=== PATIENT | male | born 1970 | race Caucasian/White ===

== ENCOUNTER 2021-05-09 13:13 | Emergency (ER) | payer BC ==
[2021-05-09] MEDS ORDERED: Sodium Chloride 0.9% 10 ML Syringe FLUSH PRN ×2 (13:51→14:02)
[2021-05-09] MEDS ORDERED: Sodium Chloride 0.9% 1,000 ML IV STA (13:52)
[2021-05-09] MEDS ORDERED: Ondansetron 4 MG/2 ML SDV IVPUSH ONE (13:52)
[2021-05-09] MEDS ORDERED: HYDROmorphone 0.5 MG/0.5 ML Syringe IVPUSH ONE ×2 (13:52→14:49)
[2021-05-09] MEDS ORDERED: Iopamidol 612 MG/ML 100 ML Bottle IVPUSH ONE (14:02)
--- NOTE | 2021-05-09 14:08 | EDM.PDOC ---
ED HPI GENERAL MEDICAL PROBLEM - General Chief Complaint: Back Pain or Injury Stated Complaint: R SIDE RIB AND BACK PAIN Time Seen by Provider: 05/09/21 13:22 Source of Information: Reports: Patient, RN Notes Reviewed History Limitations: Reports: No Limitations - History of Present Illness INITIAL COMMENTS - FREE TEXT/NARRATIVE: Patient is a 50-year-old male presenting to the emergency department with acute onset of right-sided flank pain which radiates into his right ribs and somewhat into his right abdomen. He reports that he was driving when the symptoms began. Describes it as coming on fairly acutely. He did vomit when the pain began. Denies any recent injuries that he can recall. He denies history of kidney stones but states that he did have a "kidney obstruction "on the right side approximately 30 years ago. He believes this obstruction was within the ureter and not of blood flow. Denies any obvious blood in his urine but states that he did feel that it smelled different today. He denies any fever or chills. Patient also reports that he believes he has a sinus infection. He has some nasal congestion upon waking this morning had greenish discharge in his left eye. Denies any itching or pain to the eye. Patient reports that he did drink a large amount of alcohol last evening. He normally drinks about 5 drinks per day, however last evening he drank much more than this. Patient has past medical history significant for type 2 diabetes, hypertension, and high cholesterol. Right Back Pain Score (Numeric/FACES): 8 - Related Data Allergies Allergy/AdvReac Type Severity Reaction Status Date / Time meperidine [From Demerol] Allergy Nausea Verified 05/09/21 13:25 Home Meds: Home Meds Chlorthalidone 25 mg PO DAILY 05/09/21 [History] amLODIPine [Norvasc] 10 mg PO DAILY 05/09/21 [History] atorvaSTATin [Lipitor] 20 mg PO DAILY 05/09/21 [History] metFORMIN [Glucophage] 1,000 mg PO DAILY 05/09/21 [History] Cyclobenzaprine [Flexeril] 10 mg PO TID PRN #10 tab 05/10/21 [Rx] Hydrocodone/Acetaminophen [Hydrocodone-Acetamin 5-325 mg] 1 each PO Q4H PRN #12 tablet 05/10/21 [Rx] Potassium Chloride 20 meq PO BID 3 Days #6 tablet.er 10/17/21 [Rx] Past Medical History Cardiovascular History: Reports: High Cholesterol, Hypertension Genitourinary History: Reports: Renal Calculus Musculoskeletal History: Reports: Other (See Below) Other Musculoskeletal History: back surgery Endocrine/Metabolic History: Reports: Diabetes, Type II Social & Family History - Tobacco Use Tobacco Use Status *Q: Never Tobacco User Second Hand Smoke Exposure: No - Caffeine Use Caffeine Use: Reports: Energy Drinks - Alcohol Use Days Per Week of Alcohol Use: 5 Number of Drinks Per Day: 3 Total Drinks Per Week: 15 - Recreational Drug Use Recreational Drug Use: No ED ROS GENERAL - Review of Systems Review Of Systems: See Below Constitutional: Reports: No Symptoms. Denies: Fever, Chills HEENT: Reports: No Symptoms Respiratory: Reports: No Symptoms Cardiovascular: Reports: No Symptoms Endocrine: Reports: No Symptoms GI/Abdominal: Reports: Nausea, Vomiting. Denies: Abdominal Pain, Diarrhea : Reports: Flank Pain. Denies: Dysuria, Hematuria Musculoskeletal: Reports: Back Pain Skin: Reports: No Symptoms Neurological: Reports: No Symptoms Psychiatric: Reports: No Symptoms Hematologic/Lymphatic: Reports: No Symptoms Immunologic: Reports: No Symptoms ED EXAM, GENERAL - Physical Exam Exam: See Below Exam Limited By: No Limitations General Appearance: Alert, WD/WN, No Apparent Distress Respiratory/Chest: No Respiratory Distress, Lungs Clear, Normal Breath Sounds, No Accessory Muscle Use, Chest Non-Tender Cardiovascular: Normal Peripheral Pulses, Regular Rate, Rhythm, No Edema, No Gallop, No JVD, No Murmur, No Rub GI/Abdominal: Normal Bowel Sounds, Soft, No Organomegaly, No Distention, No Abnormal Bruit, No Mass, Tender (Mild right lateral) Back Exam: Normal Inspection, Full Range of Motion, CVA Tenderness (R) (Mild) Neurological: Alert, Oriented, CN II-XII Intact, Normal Cognition, Normal Gait, Normal Reflexes, No Motor/Sensory Deficits Psychiatric: Normal Affect, Normal Mood Skin Exam: Warm, Dry, Intact, Normal Color, No Rash #1 Interpretation EKG Date: 05/09/21 Time: 14:33 Rhythm: NSR Rate (Beats/Min): 106 Braham: Normal P-Wave: Present QRS: Normal ST-T: Normal QT: Prolonged (borderline) EKG Interpretation Comments: paired PVCs Course - Vital Signs Last Recorded V/S: Last Vital Signs Temp 98.6 F 05/09/21 13:23 Pulse 105 H 05/09/21 13:23 Resp 20 05/09/21 13:23 BP 152/78 H 05/09/21 13:23 Pulse Ox 97 05/09/21 13:23 - Orders/Labs/Meds Labs: Laboratory Tests 05/09/21 05/09/21 05/09/21 Range/Units 13:30 14:15 14:15 WBC 12.97 H (4.23-9.07) K/mm3 RBC 5.04 (4.63-6.08) M/mm3 Hgb 15.5 (13.7-17.5) gm/dl Hct 43.6 (40.1-51.0) % MCV 86.5 (79.0-92.2) fl MCH 30.8 (25.7-32.2) pg MCHC 35.6 H (32.2-35.5) g/dl RDW Std Deviation 40.2 (35.1-43.9) fL Plt Count 249 (163-337) K/mm3 MPV 11.7 (9.4-12.3) fl Neut % (Auto) 73.6 H (34.0-67.9) % Lymph % (Auto) 17.7 L (21.8-53.1) % [place] % (Auto) 7.6 (5.3-12.2) % Eos % (Auto) 0.2 L (0.8-7.0) Baso % (Auto) 0.5 (0.1-1.2) % Neut # (Auto) 9.55 H (1.78-5.38) K/mm3 Lymph # (Auto) 2.30 (1.32-3.57) K/mm3 [place] # (Auto) 0.98 H (0.30-0.82) K/mm3 Eos # (Auto) 0.03 L (0.04-0.54) K/mm3 Baso # (Auto) 0.06 (0.01-0.08) K/mm3 Sodium 135 L (136-145) mEq/L Potassium 2.3 L* (3.5-5.1) mEq/L Chloride 93 L (98-107) mEq/L Carbon Dioxide 31 (21-32) mEq/L Anion Gap 13.3 (5-15) BUN 17 (7-18) mg/dL Creatinine 1.1 (0.7-1.3) mg/dL Est Cr Clr Drug Dosing 71.69 mL/min Estimated GFR (MDRD) > 60 (>60) mL/min BUN/Creatinine Ratio 15.5 (14-18) Glucose 258 H (70-99) mg/dL Calcium 8.9 (8.5-10.1) mg/dL Magnesium (1.8-2.4) mg/dL Total Bilirubin 0.7 (0.2-1.0) mg/dL AST 71 H (15-37) U/L ALT 82 H (16-63) U/L Alkaline Phosphatase 99 (46-116) U/L Troponin I (0.00-0.056) ng/mL C-Reactive Protein 1.6 H* (<1.0) mg/dL Total Protein 7.3 (6.4-8.2) g/dl Albumin 3.6 (3.4-5.0) g/dl Globulin 3.7 gm/dL Albumin/Globulin Ratio 1.0 (1-2) Lipase (73-393) U/L Urine Color Yellow (Yellow) Urine Appearance Clear (Clear) Urine pH 7.0 (5.0-8.0) Ur Specific Counce 1.020 (1.005-1.030) Urine Protein Negative (Negative) Urine Glucose (UA) 2+ H (Negative) Urine Ketones Negative (Negative) Urine Occult Blood Negative (Negative) Urine Nitrite Negative (Negative) Urine Bilirubin Negative (Negative) Urine Urobilinogen 1.0 (0.2-1.0) Ur Leukocyte Esterase Negative (Negative) SARS-CoV-2 RNA (LETTY) (NEGATIVE) 05/09/21 05/09/21 05/09/21 Range/Units 14:15 14:15 14:15 WBC (4.23-9.07) K/mm3 RBC (4.63-6.08) M/mm3 Hgb (13.7-17.5) gm/dl Hct (40.1-51.0) % MCV (79.0-92.2) fl MCH (25.7-32.2) pg MCHC (32.2-35.5) g/dl RDW Std Deviation (35.1-43.9) fL Plt Count (163-337) K/mm3 MPV (9.4-12.3) fl Neut % (Auto) (34.0-67.9) % Lymph % (Auto) (21.8-53.1) % [place] % (Auto) (5.3-12.2) % Eos % (Auto) (0.8-7.0) Baso % (Auto) (0.1-1.2) % Neut # (Auto) (1.78-5.38) K/mm3 Lymph # (Auto) (1.32-3.57) K/mm3 [place] # (Auto) (0.30-0.82) K/mm3 Eos # (Auto) (0.04-0.54) K/mm3 Baso # (Auto) (0.01-0.08) K/mm3 Sodium (136-145) mEq/L Potassium (3.5-5.1) mEq/L Chloride (98-107) mEq/L Carbon Dioxide (21-32) mEq/L Anion Gap (5-15) BUN (7-18) mg/dL Creatinine (0.7-1.3) mg/dL Est Cr Clr Drug Dosing mL/min Estimated GFR (MDRD) (>60) mL/min BUN/Creatinine Ratio (14-18) Glucose (70-99) mg/dL Calcium (8.5-10.1) mg/dL Magnesium (1.8-2.4) mg/dL Total Bilirubin (0.2-1.0) mg/dL AST (15-37) U/L ALT (16-63) U/L Alkaline Phosphatase (46-116) U/L Troponin I < 0.017 (0.00-0.056) ng/mL C-Reactive Protein (<1.0) mg/dL Total Protein (6.4-8.2) g/dl Albumin (3.4-5.0) g/dl Globulin gm/dL Albumin/Globulin Ratio (1-2) Lipase 163 (73-393) U/L Urine Color (Yellow) Urine Appearance (Clear) Urine pH (5.0-8.0) Ur Specific Counce (1.005-1.030) Urine Protein (Negative) Urine Glucose (UA) (Negative) Urine Ketones (Negative) Urine Occult Blood (Negative) Urine Nitrite (Negative) Urine Bilirubin (Negative) Urine Urobilinogen (0.2-1.0) Ur Leukocyte Esterase (Negative) SARS-CoV-2 RNA (LETTY) Negative (NEGATIVE) 05/09/21 05/09/21 Range/Units 14:15 18:20 WBC (4.23-9.07) K/mm3 RBC (4.63-6.08) M/mm3 Hgb (13.7-17.5) gm/dl Hct (40.1-51.0) % MCV (79.0-92.2) fl MCH (25.7-32.2) pg MCHC (32.2-35.5) g/dl RDW Std Deviation (35.1-43.9) fL Plt Count (163-337) K/mm3 MPV (9.4-12.3) fl Neut % (Auto) (34.0-67.9) % Lymph % (Auto) (21.8-53.1) % [place] % (Auto) (5.3-12.2) % Eos % (Auto) (0.8-7.0) Baso % (Auto) (0.1-1.2) % Neut # (Auto) (1.78-5.38) K/mm3 Lymph # (Auto) (1.32-3.57) K/mm3 [place] # (Auto) (0.30-0.82) K/mm3 Eos # (Auto) (0.04-0.54) K/mm3 Baso # (Auto) (0.01-0.08) K/mm3 Sodium (136-145) mEq/L Potassium (3.5-5.1) mEq/L Chloride (98-107) mEq/L Carbon Dioxide (21-32) mEq/L Anion Gap (5-15) BUN (7-18) mg/dL Creatinine (0.7-1.3) mg/dL Est Cr Clr Drug Dosing mL/min Estimated GFR (MDRD) (>60) mL/min BUN/Creatinine Ratio (14-18) Glucose (70-99) mg/dL Calcium (8.5-10.1) mg/dL Magnesium 1.0 L (1.8-2.4) mg/dL Total Bilirubin (0.2-1.0) mg/dL AST (15-37) U/L ALT (16-63) U/L Alkaline Phosphatase (46-116) U/L Troponin I < 0.017 (0.00-0.056) ng/mL C-Reactive Protein (<1.0) mg/dL Total Protein (6.4-8.2) g/dl Albumin (3.4-5.0) g/dl Globulin gm/dL Albumin/Globulin Ratio (1-2) Lipase (73-393) U/L Urine Color (Yellow) Urine Appearance (Clear) Urine pH (5.0-8.0) Ur Specific Counce (1.005-1.030) Urine Protein (Negative) Urine Glucose (UA) (Negative) Urine Ketones (Negative) Urine Occult Blood (Negative) Urine Nitrite (Negative) Urine Bilirubin (Negative) Urine Urobilinogen (0.2-1.0) Ur Leukocyte Esterase (Negative) SARS-CoV-2 RNA (LETTY) (NEGATIVE) Meds: Medications Discontinued Medications Generic Name Dose Route Start Last Admin Trade Name Freq PRN Reason Stop Dose Admin Cyclobenzaprine HCl 10 mg 05/09/21 16:39 05/09/21 16:44 Cyclobenzaprine 10 Mg Tab PO 05/09/21 16:40 10 mg ONETIME ONE Administration Hydromorphone HCl 0.5 mg 05/09/21 13:52 05/09/21 14:12 Hydromorphone 0.5 Mg/0.5 Ml Syringe IVPUSH 05/09/21 13:53 0.5 mg ONETIME ONE Administration Hydromorphone HCl 0.5 mg 05/09/21 14:49 05/09/21 14:54 Hydromorphone 0.5 Mg/0.5 Ml Syringe IVPUSH 05/09/21 14:50 0.5 mg ONETIME ONE Administration Sodium Chloride 1,000 mls @ 150 mls/hr 05/09/21 13:52 05/09/21 14:13 Normal Saline IV 05/09/21 20:31 150 mls/hr NOW STA Administration Potassium Chloride 10 meq/ 100 mls @ 100 mls/hr 05/09/21 15:15 05/09/21 19:41 Premix IV 05/09/21 20:14 100 mls/hr Q1H COLLIN Administration Magnesium Sulfate 4 gm/ Premix 50 mls @ 12.5 mls/hr 05/09/21 16:43 05/09/21 16:51 IV 05/09/21 20:42 12.5 mls/hr ONETIME ONE Administration Iopamidol 100 ml 05/09/21 14:02 05/09/21 15:55 Iopamidol 612 Mg/Ml 100 Ml Bottle IVPUSH 05/09/21 14:03 100 ml ONETIME ONE Administration Iopamidol 50 ml 05/09/21 15:28 05/09/21 15:55 Iopamidol 612 Mg/Ml 50 Ml Sdv IVPUSH 05/09/21 15:29 50 ml ONETIME ONE Administration Ketorolac Tromethamine 30 mg 05/09/21 16:39 05/09/21 16:45 Ketorolac 30 Mg/Ml Sdv IVPUSH 05/09/21 16:40 30 mg ONETIME ONE Administration Ondansetron HCl 4 mg 05/09/21 13:52 05/09/21 14:13 Ondansetron 4 Mg/2 Ml Sdv IVPUSH 05/09/21 13:53 4 mg ONETIME ONE Administration Potassium Chloride 40 meq 05/09/21 16:40 05/09/21 16:44 Potassium Chloride 20 Meq Tab.Er PO 05/09/21 16:41 40 meq ONETIME ONE Administration Sodium Chloride 10 ml 05/09/21 13:51 05/09/21 14:13 Sodium Chloride 0.9% 10 Ml Syringe FLUSH 10 ml ASDIRECTED PRN Administration Keep Vein Open Sodium Chloride 10 ml 05/09/21 14:02 05/09/21 15:55 Sodium Chloride 0.9% 10 Ml Syringe FLUSH 10 ml ONETIME PRN Administration IV FLUSH - Re-Assessments/Exams Free Text/Narrative Re-Assessment/Exam: 05/09/21 14:34 I was notified by Natalee CLARK that patient is reporting an area of swelling in the area of his left subclavian. He reports he did not notice this before. RN was concerned that she could hear a bruit when she auscultates over the area. On exam, patient does have an area of soft tissue swelling in the area of his left subclavian. When having him hold his breath, there is no audible bruit that I can auscultate. Nonetheless, I will change his abdomen pelvis CT to chest abdomen pelvis and have them extend the CT scan up through this area. Nurse also noticed that patient's pulse was as low as the 30s on the pulse ox. She applied monitor car operator and he appeared to have been in ventricular trigeminy. I have ordered EKG and troponin. 05/09/21 1645 Magnesium is found to be low at 1.0. I have ordered 4 g of IV magnesium to be given 05/09/21 19:34 Repeat troponin was completed at 1820 and found to be undetectably low. Patient has completed 4 of his 5 bags of potassium. He is resting comfortably at this time. 05/09/212024 Patient has completed his potassium infusion and is doing well. We will discharge him home. Discharge instructions as documented. Departure - Departure Time of Disposition: 20:26 Disposition: Home, Self-Care 01 Condition: Good Clinical Impression: Hypokalemia, Hypomagnesemia Back pain Qualifiers: Back pain location: thoracic back pain Chronicity: acute Back pain laterality: right Qualified Code(s): M54.6 - Pain in thoracic spine - Discharge Information *PRESCRIPTION DRUG MONITORING PROGRAM REVIEWED*: Yes *COPY OF PRESCRIPTION DRUG MONITORING REPORT IN PATIENT HILDA: No Prescriptions: Cyclobenzaprine [Flexeril] 10 mg PO TID PRN #10 tab PRN Reason: Muscle Spasm Hydrocodone/Acetaminophen [Hydrocodone-Acetamin 5-325 mg] 1 each PO Q4H PRN #12 tablet PRN Reason: Pain Potassium Chloride 20 meq PO BID 3 Days #6 tablet.er Instructions: Hypomagnesemia, Hypokalemia, Acute Back Pain, Adult Referrals: PCP,Not In Area [Primary Care Provider] - Forms: ED Department Discharge Additional Instructions: You were seen in the emergency department today for right upper back pain. Work-up included blood work, urinalysis, CT scan of your chest abdomen pelvis, EKG, and Covid test. Results of work-up showed that she had a low potassium and magnesium. These were replaced in the emergency department. You have been placed on a potassium supplement for the next few days. Take this as prescribed. You have been prescribed Flexeril which is a muscle relaxer and hydrocodone with Tylenol for treatment of your back pain. Take this as prescribed. Do not work or drive for 12 hours after taking these medications as they can be sedating. Do not consume alcohol while taking these medications. Recommend that you follow-up with your primary care provider soon as possible upon return home to have your blood work rechecked and for an ER follow-up visit. Return to ER as needed.
[2021-05-09] MEDS: Potassium Chloride 10 MEQ in Premix Bag 1 BAG IV SCH ×5 (15:20→19:41)
[2021-05-09] MEDS ORDERED: Iopamidol 612 MG/ML 50 ML SDV IVPUSH ONE (15:28)
--- NOTE | 2021-05-09 16:28 | CT ---
CT chest Technique: Multiple axial sections were obtained from above the lung apices inferiorly through the lung bases. Intravenous contrast was utilized. Reconstructed coronal and sagittal images were obtained. Comparison: No prior chest imaging is available. Findings: Subclavian areas show no adenopathy or mass. Mediastinum shows no adenopathy. Thoracic aorta shows no aneurysm. No pericardial thickening is seen. No axillary adenopathy is noted. Lung window settings were reviewed. No acute parenchymal abnormality is seen within either lung. Slightly prominent extrapleural fat is noted within both posterior lungs as an incidental note. Bone window settings were reviewed which show degenerative change within the lower cervical spine. No acute osseous abnormality is appreciated. Impression: 1. Nothing acute is seen on CT study of the chest. Diagnostic code #2 CT abdomen and pelvis Technique: Multiple axial sections were obtained from above the dome of the diaphragm inferiorly through the pubic symphysis. Intravenous contrast was utilized. No oral contrast has been given. Delayed images were also obtained through the abdomen and pelvis. Reconstructed coronal and sagittal images were also obtained. Comparison: No prior abdomen or pelvis imaging is available. Findings: Liver contains no focal parenchymal abnormality. Gallbladder contains no calcified gallstones. Spleen size is normal. Adrenal glands show no nodule. Pancreas is within normal limits. Dilated collecting system is noted within the right kidney. This is most likely chronic as no ureteral dilatation is seen. Ureter is opacified on delayed images to the bladder. Left ureter also shows no dilatation. Left kidney shows a nonobstructing calculus measuring 6 mm. Abdominal aorta shows no aneurysm. No retroperitoneal adenopathy is seen. No mesenteric abnormalities are seen. There is severe atrophy of the right side of the rectus muscle being noted. No pelvic mass is seen. Fat-containing bilateral inguinal hernias are seen. Appendix is seen which is normal in size. Scattered diverticuli are seen throughout the colon. No inflammatory change is seen. Bone window settings were reviewed which show old compression trauma within L3. Trans-pedicle screws are seen within L1 and L3. Slight degenerative change is noted within the sacroiliac joints. No acute osseous abnormality is otherwise appreciated. Impression: 1. Dilated collecting system within the right kidney. This finding is most likely chronic as no etiology is seen on this study. Right ureter is opacified and shows no dilatation. Small nonobstructing stone within the left kidney. 2. Other nonacute findings as described above. Diagnostic code #2
[2021-05-09] MEDS ORDERED: Ketorolac 30 MG/ML SDV IVPUSH ONE (16:39)
[2021-05-09] MEDS ORDERED: Cyclobenzaprine 10 MG Tab PO ONE (16:39)
[2021-05-09] MEDS ORDERED: Potassium Chloride 20 MEQ Tab.ER PO ONE (16:40)
[2021-05-09] MEDS ORDERED: Magnesium Sulfate/Water 4 GM in Premix Bag 1 BAG IV ONE (16:43)
== END 2021-05-09 20:52 | disposition home or self-care (01) ==
LOC: JD.ED 13:13
DX: M54.6 Pain in thoracic spine (principal); E87.6 Hypokalemia; E83.42 Hypomagnesemia; E78.00 Pure hypercholesterolemia, unspecified; I10 Essential (primary) hypertension; E11.9 Type 2 diabetes mellitus without complications; Z88.8 Allergy status to other drugs, medicaments and biological substances; Z20.822 Contact with and (suspected) exposure to COVID-19
CPT/HCPCS: 36415; 71260; 74177; 80053; 81003; 83690; 83735; 84484; 85025; 86140; 87635; 93005; 96365; 96366; 96367; 96375; 96376; 99284; A9270; J1170; J1885; J2405; J3475; J3480; J7030; Q9967; U0002